=== PATIENT | female | born 1965 | race American Indian/Alaskan Native ===

== ENCOUNTER 2017-03-22 21:08 | Emergency (ER) | payer OTHER ==
[2017-03-22 22:33] LABS: Basophils % (Auto) 0.5 % (0.0-1.8); Eosinophils % (Auto) 0.7 % (0.0-4.3); Hematocrit 40.9 % (30.3-42.9); Hemoglobin 13.5 gm/dl (10.1-14.3); Mean Corpuscular HGB Conc 33 % (30-34); Mean Corpuscular Hemoglobin 32 pg (28-32); Mean Corpuscular Volume 95 fl (79-97); Platelet Count 223 K/mm3 (140-440); Red Blood Count 4.29 M/mm3 (3.65-5.03); White Blood Count 7.1 K/mm3 (4.5-11.0)
[2017-03-22 22:37] LABS: Anion Gap 18 mmol/L; BUN/Creatinine Ratio 23.33; Blood Urea Nitrogen 14 mg/dL (7-17); Calcium 9.3 mg/dL (8.4-10.2); Carbon Dioxide 25 mmol/L (22-30); Chloride 104.6 mmol/L (98-107); Glucose 89 mg/dL (65-100); Sodium 144 mmol/L (137-145)
[2017-03-22 22:44] LABS: Urine Drugs of Abuse Note Disclamer
[2017-03-22 23:29] LABS: Bilirubin,Urine NEG (Negative); Blood,Urine NEG (Negative); Ketones,Urine TR mg/dL (Negative); Nitrite,Urine NEG (Negative); Protein,Urine <15 mg/dL mg/dL (Negative)
[2017-03-22 23:30] LABS: Leukocyte Esterase,Urine TR (Negative); Mucus,Urine 2+ /HPF
--- NOTE | 2017-03-23 00:56 | Emergency Department Report ---
ED Psych HPI - General Chief Complaint: Psych Stated Complaint: BODY PAIN/ANXIETY/SLEEPINESS Time Seen by Provider: 03/23/17 00:45 Source: patient Mode of arrival: Ambulatory - History of Present Illness Initial Comments: 51 years old female coming today with a depression stating on for the last few month just getting worse recently. Patient stated that she was trying to deal with it by herself that she reached the point that she cannot take it by herself anymore and she needs some help. Patient denied any suicidal thoughts or ideation. No homicidal thoughts. No visual or auditory hallucination. Patient is a breast cancer survival last chemotherapy was in October 2016. Complaint: feels depressed -: Gradual Associated Psychiatric Symptoms: depression Quality: constant Associated Symptoms: denies other symptoms - Related Data Previous Rx's Medication Instructions Recorded Last Taken Type Ketorolac [Toradol] 10 mg PO Q6H PRN #20 tablet 03/23/17 Unknown Rx Allergies Allergy/AdvReac Type Severity Reaction Status Date / Time No Known Allergies Allergy Verified 03/22/17 21:37 ED Review of Systems ROS: Stated complaint: BODY PAIN/ANXIETY/SLEEPINESS Other details as noted in HPI Comment: All other systems reviewed and negative Constitutional: denies: chills, fever Respiratory: denies: cough, shortness of breath Cardiovascular: denies: chest pain, palpitations Gastrointestinal: denies: abdominal pain, nausea, vomiting, diarrhea Skin: denies: lesions, change in color Neurological: denies: headache, numbness ED Past Medical Hx - Past Medical History Previous Medical History?: Yes Additional medical history: breast cancer - Surgical History Past Surgical History?: Yes Additional Surgical History: lumpectomy - Social History Smoking Status: Never Smoker Substance Use Type: None - Medications Home Medications: Home Medications Medication Instructions Recorded Confirmed Last Taken Type Ketorolac [Toradol] 10 mg PO Q6H PRN #20 tablet 03/23/17 Unknown Rx ED Physical Exam - General Limitations: No Limitations General appearance: alert, in no apparent distress - Head Head exam: Present: normocephalic - ENT ENT exam: Present: normal exam - Neck Neck exam: Present: normal inspection - Respiratory Respiratory exam: Present: normal lung sounds bilaterally. Absent: respiratory distress, wheezes, rales - Cardiovascular Cardiovascular Exam: Present: regular rate, normal rhythm, normal heart sounds - GI/Abdominal GI/Abdominal exam: Present: soft. Absent: tenderness, guarding, rebound, rigid - Neurological Exam Neurological exam: Present: alert, oriented X3, CN II-XII intact - Skin Skin exam: Present: warm, intact, normal color ED Course Vital Signs 03/22/17 21:38 Temperature 98.6 F Pulse Rate 71 Respiratory 16 Rate Blood Pressure 144/78 O2 Sat by Pulse 99 Oximetry - Reevaluation(s) Reevaluation #1: 03/23/17 02:13 Patient does not want to stay to be evaluated by mental health she says she want to go home and she will follow-up as an outpatient we will provide how was an outpatient resources for follow-up. Again patient denied any suicidal ideation or homicidal ideation no auditory or visual hallucination patient is good to be discharged. ED Medical Decision Making - Lab Data Result diagrams: 03/22/17 22:02 03/22/17 22:02 Critical care attestation.: If time is entered above; I have spent that time in minutes in the direct care of this critically ill patient, excluding procedure time. ED Disposition Clinical Impression: Depression Disposition: DC-01 TO HOME OR SELFCARE Is pt being admited?: No Condition: Stable Instructions: Depression (ED) Referrals: PRIMARY CARE, [Primary Care Provider] - 3-5 Days
[2017-03-23 04:09] VITALS: BP 136/86
== END 2017-03-23 03:00 | disposition home or self-care (01) ==
LOC: ED 21:08
DX: F32.9 Major depressive disorder, single episode, unspecified (principal)
CPT/HCPCS: 36415; 80048; 80307; 81001; 85025; 99284; G0480; 80320